=== PATIENT | male | born 1950 | race Hispanic/Latino ===

== ENCOUNTER → 2024-11-29 | Outpatient (CLI) | payer OTHER ==
--- NOTE | 2024-11-30 07:08 | HMCIMG ---
EXAMINATION: ULTRASOUND OF THE ABDOMEN WITH COLOR DOPPLER. CLINICAL HISTORY: Right lower quadrant pain. COMPARISON: None. TECHNIQUE: Real-time grayscale ultrasound images of the abdomen. In addition, color Doppler is medically necessary to perform in order to evaluate vascularity and blood flow. FINDINGS: Liver: Bulky in caliber, the right hepatic lobe measures 18.6 cm in the craniocaudal dimension. There is increased echogenicity of the hepatic parenchyma. There is no intrahepatic biliary ductal dilatation. There is normal spectral Doppler of the main portal vein. There are focal areas of fat sparing. Gallbladder: Within normal limits with normal wall thickness (0.17 cm). No hyperemia or pericholecystic free fluid. There are multiple small sand like calculi, the largest measure 0.6 cm. Common bile duct is normal in caliber, measuring 0.42 cm. Spleen is normal in caliber and measures 10.7 x 2.5 x 2.0 cm in craniocaudal, AP and transverse dimensions respectively. No focal lesions. Pancreas: Normal in caliber and echotexture. No calcification or dilated pancreatic duct. The kidneys are normal in caliber, the right kidney measures 11.1 x 5.3 x 6.0 cm and the left kidney measures 12.8 x 5.5 x 4.2 cm in craniocaudal, AP, and transverse dimensions respectively. There is normal renal cortical thickness, and cortical echogenicity. There is no renal calculus or hydronephrosis. There is a simple cortical cyst that measures 2.3 x 2.0 x 1.8 cm in the right renal mid pole. There is a simple parapelvic cyst that measures 2.1 x 2.3 x 1.8 cm in the left renal upper pole. The proximal, mid, and distal aspects of abdominal aorta are normal in caliber measuring 2.8 cm, 1.9 cm, and 1.5 cm in the AP dimension respectively. Visualized aspects of the inferior vena cava are unremarkable. IMPRESSION: Hepatomegaly with hepatic steatosis. Cholelithiasis. No cholecystitis.Bilateral simple renal cortical and parapelvic cysts. /Black
== END | disposition home or self-care (01) ==
LOC: RAH 08:09
PROVIDERS: ATTEND Internal Medicine
DX: K76.0 Fatty (change of) liver, not elsewhere classified (principal); K80.20 Calculus of gallbladder without cholecystitis without obstruction; R16.0 Hepatomegaly, not elsewhere classified; N28.89 Other specified disorders of kidney and ureter; N28.1 Cyst of kidney, acquired; R10.31 Right lower quadrant pain
CPT/HCPCS: 76700